=== PATIENT | female | born 1950 | race Caucasian/White ===

== ENCOUNTER → 2016-08-14 | Outpatient (REF) | payer MEDICARE, OTHER ==
[~2016-08-14] MED LIST: CALC1TAB30 PO; CENTTAB PO; GLUCTAB4 PO; LEVO100T54 PO; OMEGCAP9 PO; OMEP20CA3 PO; PARO40TA87 PO; [UNRECOGNIZED DRUG - OTHER] PO
[2016-08-14 11:37] LABS: MEAN CORPUSCULAR HEMOGLOBIN 29.5 pg (27.0-33.0); MEAN CORPUSCULAR HGB CONC 33.5 g/dl (32.0-36.5)
[2016-08-14 12:21] LABS: VITAMIN B12 LEVEL 492 PG/ML (247-911)
[2016-08-14 12:22] LABS: FOLATE > 24.0 NG/ML (>5.4)
[2016-08-14 13:07] LABS: ALBUMIN 4.1 GM/DL (3.2-5.2); ALBUMIN/GLOBULIN RATIO 1.28 (1.00-1.93); ALKALINE PHOSPHATASE 96 U/L (45-117); ALT/SGPT 20 U/L (12-78); ANION GAP 5 MEQ/L (8-16); AST/SGOT 17 U/L (15-37); BILIRUBIN,TOTAL 0.4 MG/DL (0.2-1.0); BLOOD UREA NITROGEN 16 MG/DL (7-18); CALCIUM LEVEL 8.9 MG/DL (8.8-10.2); CARBON DIOXIDE LEVEL 30 MEQ/L (21-32); CHLORIDE LEVEL 105 MEQ/L (98-107); CHOLESTEROL LEVEL 251 MG/DL (<200); CREATININE FOR GFR 0.74 MG/DL (0.55-1.02); FREE T4 0.91 NG/DL (0.76-1.46); GLOMERULAR FILTRATION RATE > 60.0 (>45); GLUCOSE, FASTING 83 MG/DL (80-110); POTASSIUM SERUM 4.6 MEQ/L (3.5-5.1); SODIUM LEVEL 140 MEQ/L (136-145); TOTAL PROTEIN 7.3 GM/DL (6.4-8.2); TRIGLYCERIDES LEVEL 152 MG/DL (<150)
== END ==
LOC: M SFHCCLAY 09:15
PROVIDERS: ATTEND Family Medicine
DX: Z00.00 Encounter for general adult medical examination without abnormal findings (principal); E03.9 Hypothyroidism, unspecified; E78.00 Pure hypercholesterolemia, unspecified; M05.79 Rheumatoid arthritis with rheumatoid factor of multiple sites without organ or systems involvement; R41.3 Other amnesia

== ENCOUNTER → 2016-08-14 | Outpatient (CLI) | payer MEDICARE, OTHER ==
--- NOTE | 2016-08-14 10:00 | REP ---
Right hip series: Two views. History: Rheumatoid arthritis. Findings: AP and frog-leg views of the right hip show smooth rounded femoral head and intact at joint space. Periarticular soft tissues are unremarkable. No erosive change is seen. Impression: Negative right hip views.
== END ==
LOC: M CLY 09:19
PROVIDERS: ATTEND Family Medicine
DX: M05.79 Rheumatoid arthritis with rheumatoid factor of multiple sites without organ or systems involvement (principal)

== ENCOUNTER → 2017-12-03 | Outpatient (REF) | payer MEDICARE, OTHER ==
[2017-12-03 12:50] LABS: ALBUMIN 3.8 GM/DL (3.2-5.2); ALBUMIN/GLOBULIN RATIO 1.06 (1.00-1.93); ALKALINE PHOSPHATASE 95 U/L (45-117); ALT/SGPT 20 U/L (12-78); ANION GAP 7 MEQ/L (8-16); AST/SGOT 15 U/L (7-37); BILIRUBIN,TOTAL 0.4 MG/DL (0.2-1.0); BLOOD UREA NITROGEN 18 MG/DL (7-18); CALCIUM LEVEL 9.1 MG/DL (8.8-10.2); CARBON DIOXIDE LEVEL 30 MEQ/L (21-32); CHLORIDE LEVEL 105 MEQ/L (98-107); CHOLESTEROL LEVEL 250 MG/DL (<200); CHOLESTEROL RISK RATIO 4.166 (<5); CREATININE FOR GFR 0.79 MG/DL (0.55-1.30); FREE T4 0.82 NG/DL (0.76-1.46); GLOMERULAR FILTRATION RATE > 60.0 (>45); GLUCOSE, FASTING 79 MG/DL (70-100); HDL CHOLESTEROL 60 MG/DL (>40); LDL CHOLESTEROL 162.2 MG/DL (<100); NON-HDL-C 190 MG/DL; POTASSIUM SERUM 4.4 MEQ/L (3.5-5.1); SODIUM LEVEL 142 MEQ/L (136-145); TOTAL PROTEIN 7.4 GM/DL (6.4-8.2); TRIGLYCERIDES LEVEL 139 MG/DL (<150)
== END ==
LOC: M SFHCCLAY 09:30
DX: E78.00 Pure hypercholesterolemia, unspecified (principal); E03.9 Hypothyroidism, unspecified
CPT/HCPCS: 84443

== ENCOUNTER → 2018-09-02 | Outpatient (REF) | payer MEDICARE, OTHER ==
[~2018-09-02] MED LIST changes: +PARO40TA3 PO; -PARO40TA87 PO
[2018-09-02 16:40] LABS: C REACTIVE PROTEIN QUANTITATIV < 0.30 MG/DL (0.00-0.30); RHEUMATOID FACTOR QUANT < 10.0 IU/ML (<15.0)
== END ==
LOC: M SFHCCLAY 11:04
PROVIDERS: ATTEND Family Medicine
DX: M06.9 Rheumatoid arthritis, unspecified (principal)
CPT/HCPCS: 85652; 86140; 86200; 86431; G0463

== ENCOUNTER → 2018-11-21 | Outpatient (CLI) | payer MEDICARE, OTHER ==
[~2018-11-21] MED LIST changes: -OMEP20CA3 PO; +OMEP20CA4 PO
--- NOTE | 2018-11-22 11:58 | REP ---
PA and lateral chest: Comparison is 08/29/2015. The lung [place] are clear. The cardiac size is normal. The mckenna, mediastinum, and skeletal structures are unremarkable. Impression: Negative PA and lateral chest. Electronically Signed by Dixon Abel MD 11/21/2018 10:13 A
== END ==
LOC: M CLY 09:36
PROVIDERS: ATTEND Nurse Practitioner Family
DX: R05 Cough (principal)
CPT/HCPCS: 71046; G0463

== ENCOUNTER → 2019-10-06 | Outpatient (REF) | payer MEDICARE, BC, OTHER ==
[~2019-10-06] MED LIST changes: +OMEP1CAP73 PO; -OMEP20CA4 PO
== END ==
LOC: M LAB REF 17:52
PROVIDERS: ATTEND Physician Assistant
DX: C44.519 Basal cell carcinoma of skin of other part of trunk (principal)
CPT/HCPCS: 11102; 88305; G0463

== ENCOUNTER → 2019-12-01 | Outpatient (REF) | payer MEDICARE, OTHER | LOC: M LAB REF 11:35 | PROVIDERS: ATTEND Dermatology | DX: L57.0 Actinic keratosis (principal) ==

== ENCOUNTER → 2020-07-11 | Outpatient (REF) | payer MEDICARE, OTHER ==
[2020-07-11 13:13] LABS: HEMATOCRIT 39.3 % (36.0-47.0); HEMOGLOBIN 12.5 g/dl (12.0-15.5); MEAN CORPUSCULAR HEMOGLOBIN 28.9 pg (27.0-33.0); MEAN CORPUSCULAR HGB CONC 31.8 g/dl (32.0-36.5); MEAN CORPUSCULAR VOLUME 90.8 fl (80.0-96.0); PLATELET COUNT, AUTOMATED 347 10^3/uL (150-450); RED BLOOD COUNT 4.33 10^6/uL (4.00-5.40); WHITE BLOOD COUNT 5.8 10^3/uL (4.0-10.0)
[2020-07-11 14:49] LABS: ALBUMIN 4.1 GM/DL (3.2-5.2); ALT/SGPT 19 U/L (12-78); BILIRUBIN,TOTAL 0.5 MG/DL (0.2-1.0); BLOOD UREA NITROGEN 16 MG/DL (7-18); CALCIUM LEVEL 10.1 MG/DL (8.8-10.2); CARBON DIOXIDE LEVEL 30 MEQ/L (21-32); CHLORIDE LEVEL 106 MEQ/L (98-107); CHOLESTEROL LEVEL 243 MG/DL (<200); CHOLESTEROL RISK RATIO 2.892 (<5); CREATININE FOR GFR 0.85 MG/DL (0.55-1.30); FREE T4 1.03 NG/DL (0.76-1.46); GLOMERULAR FILTRATION RATE > 60.0 (>45); GLUCOSE, FASTING 82 MG/DL (70-100); HDL CHOLESTEROL 84 MG/DL (>40); LDL CHOLESTEROL 141 MG/DL (<100); NON-HDL-C 159 MG/DL; POTASSIUM SERUM 4.5 MEQ/L (3.5-5.1); SODIUM LEVEL 141 MEQ/L (136-145); TOTAL PROTEIN 7.3 GM/DL (6.4-8.2); TRIGLYCERIDES LEVEL 91 MG/DL (<150)
== END ==
LOC: M SFHCCLAY 09:06
PROVIDERS: ATTEND Family Medicine
DX: Z00.00 Encounter for general adult medical examination without abnormal findings (principal); E03.9 Hypothyroidism, unspecified; E78.00 Pure hypercholesterolemia, unspecified

== ENCOUNTER → 2020-09-10 | Outpatient (REF) | payer MEDICARE, OTHER ==
[2020-09-10 16:30] LABS: CALCIUM LEVEL 9.6 MG/DL (8.8-10.2); CHOLESTEROL RISK RATIO 2.693 (<5); GLOMERULAR FILTRATION RATE 58.5 (>45); POTASSIUM SERUM 4.2 MEQ/L (3.5-5.1)
== END ==
LOC: M SFHCCLAY 09:20
PROVIDERS: ATTEND Family Medicine
DX: E78.00 Pure hypercholesterolemia, unspecified (principal); E05.90 Thyrotoxicosis, unspecified without thyrotoxic crisis or storm; I10 Essential (primary) hypertension

== ENCOUNTER → 2020-12-04 | Outpatient (CLI) | payer MEDICARE, BC, OTHER ==
--- NOTE | 2020-12-04 10:06 | REP ---
INDICATION: M54.41 RIGHT SIDE LOW BACK PAIN RIGHT SCIATIC. COMPARISON: 10/08/2011. TECHNIQUE: Five views lumbosacral spine. FINDINGS: There is no compression fracture. There is mild anterolisthesis of L5 on S1 due to posterior facet arthropathy. This is a new finding when compared to the prior study. There is moderate diffuse spurring. There is moderate disc space narrowing and subchondral sclerosis at L1-2, L4-5 and L5-S1, with vacuum phenomenon at L4-5 and L5-S1. There is mild narrowing at L2-3. There is sclerosis and spurring at the posterior facet joints, especially L4-5 and L5-S1. The posterior elements are intact. There is mild curvature of the lower thoracic and lumbar spine convex to the right. IMPRESSION: No compression fracture. Degenerative changes as discussed in detail above, with new mild anterolisthesis of L5 on S1 compared to the prior study in 2011. <Electronically signed by Dixon Forrest > 12/04/20 [id number]
== END ==
LOC: M CLY 09:26
PROVIDERS: ATTEND Physician Assistant
DX: M43.17 Spondylolisthesis, lumbosacral region (principal); M54.41 Lumbago with sciatica, right side
CPT/HCPCS: 72110; G0463

== ENCOUNTER → 2020-12-09 | Outpatient (REF) | payer MEDICARE, OTHER | LOC: M LAB REF 19:08 | PROVIDERS: ATTEND Physician Assistant | DX: L57.0 Actinic keratosis (principal) ==

== ENCOUNTER → 2020-12-16 | Outpatient (CLI) | payer MEDICARE, BC, OTHER | LOC: M PLAIMG 16:01 | PROVIDERS: ATTEND Physician Assistant | DX: M51.26 Other intervertebral disc displacement, lumbar region (principal); M51.25 Other intervertebral disc displacement, thoracolumbar region; M48.061 Spinal stenosis, lumbar region without neurogenic claudication; M47.816 Spondylosis without myelopathy or radiculopathy, lumbar region ==

== ENCOUNTER → 2021-08-05 | Outpatient (REF) | payer MEDICARE, OTHER | LOC: M SFHCCLAY 09:33 | PROVIDERS: ATTEND Family Medicine | DX: M06.9 Rheumatoid arthritis, unspecified (principal); R41.3 Other amnesia; E03.9 Hypothyroidism, unspecified; E78.00 Pure hypercholesterolemia, unspecified ==

== ENCOUNTER → 2021-08-06 | Outpatient (REF) | payer MEDICARE, OTHER ==
[2021-08-06 11:39] LABS: BASO # 0.1 10^3/uL (0.0-0.2); BASO % 1.6 % (0.0-1.0); EOS # 0.2 10^3/uL (0.0-0.5); EOS % 2.9 % (0.0-3.0); HEMATOCRIT 38.4 % (36.0-47.0); HEMOGLOBIN 12.9 g/dl (12.0-15.5); LYMPH % 34.1 % (24.0-44.0); MEAN CORPUSCULAR HEMOGLOBIN 29.2 pg (27.0-33.0); MEAN CORPUSCULAR HGB CONC 33.6 g/dl (32.0-36.5); MEAN CORPUSCULAR VOLUME 86.9 fl (80.0-96.0); MONO # 0.6 10^3/uL (0.0-0.8); MONO % 9.5 % (2.0-8.0); NEUTROPHILS % 51.7 % (36.0-66.0); PLATELET COUNT, AUTOMATED 372 10^3/uL (150-450); RED BLOOD COUNT 4.42 10^6/uL (4.00-5.40); WHITE BLOOD COUNT 5.8 10^3/uL (4.0-10.0)
[2021-08-06 12:32] LABS: BILIRUBIN,TOTAL 0.5 MG/DL (0.2-1.0); CALCIUM LEVEL 10.1 MG/DL (8.8-10.2); CHOLESTEROL RISK RATIO 2.698 (<5); FREE T4 0.93 NG/DL (0.76-1.46); GLOMERULAR FILTRATION RATE 58.4 (>39); POTASSIUM SERUM 4.3 MEQ/L (3.5-5.1); THYROID STIMULATING HORMONE 2.44 uIU/ML (0.358-3.740); TOTAL PROTEIN 7.4 GM/DL (6.4-8.2)
[2021-08-06 16:22] LABS: APPEARANCE, URINE HAZY (CLEAR); BACTERIA, URINE AUTO NEGATIVE (NEGATIVE); BILIRUBIN, URINE AUTO NEGATIVE (NEGATIVE); BLOOD, URINE BLOOD NEGATIVE (NEGATIVE); COLOR, URINE YELLOW (YELLOW); GLUCOSE, URINE (UA) AUTO NEGATIVE (NEGATIVE); KETONE, URINE AUTO NEGATIVE (NEGATIVE); LEUKOCYTE ESTERASE, URINE AUTO 1+ (NEGATIVE); MUCUS, URINE SMALL (NEGATIVE); NITRITE, URINE AUTO NEGATIVE (NEGATIVE); PROTEIN, URINE AUTO 1+ mg/dL (NEGATIVE); RBC, URINE AUTO 1 /HPF (0-3); SPECIFIC GRAVITY URINE AUTO 1.024 (1.002-1.035); SQUAMOUS EPITHELIAL CELL UR AU 1 /HPF (0-6); UROBILINOGEN, URINE AUTO 0.2 mg/dL (0.0-2.0); WBC, URINE AUTO 8 /HPF (0-3)
== END ==
LOC: M SFHCCLAY 08:44
PROVIDERS: ATTEND Family Medicine
DX: M06.9 Rheumatoid arthritis, unspecified (principal); R41.3 Other amnesia; M51.37 Other intervertebral disc degeneration, lumbosacral region; E03.9 Hypothyroidism, unspecified; E78.00 Pure hypercholesterolemia, unspecified; Z12.31 Encounter for screening mammogram for malignant neoplasm of breast

== ENCOUNTER → 2022-01-09 | Outpatient (CLI) | payer MEDICARE, BC, OTHER | LOC: M PLARAD 12:18 | PROVIDERS: ATTEND Family Medicine | DX: R41.3 Other amnesia (principal); R90.82 White matter disease, unspecified ==

== ENCOUNTER → 2022-07-31 | Outpatient (REF) | payer MEDICARE, OTHER ==
[2022-07-31 17:56] LABS: HEMATOCRIT 38.1 % (36.0-47.0); HEMOGLOBIN 12.6 g/dl (12.0-15.5); MEAN CORPUSCULAR HEMOGLOBIN 28.9 pg (27.0-33.0); MEAN CORPUSCULAR HGB CONC 33.1 g/dl (32.0-36.5); MEAN CORPUSCULAR VOLUME 87.4 fl (80.0-96.0); PLATELET COUNT, AUTOMATED 426 10^3/uL (150-450); RED BLOOD COUNT 4.36 10^6/uL (4.00-5.40); WHITE BLOOD COUNT 7.6 10^3/uL (4.0-10.0)
[2022-07-31 18:23] LABS: ALBUMIN 4.2 G/DL (3.2-5.2); BILIRUBIN,TOTAL 0.4 MG/DL (0.3-1.2); CALCIUM LEVEL 9.8 MG/DL (8.3-10.6); CHOLESTEROL RISK RATIO 2.68 (<5); CREATININE FOR GFR 1.04 MG/DL (0.55-1.30); GLOMERULAR FILTRATION RATE 55.8 (>39); HDL CHOLESTEROL 75.5 MG/DL (>40); LDL CHOLESTEROL 107.9 MG/DL (<100); NON-HDL-C 127.5 MG/DL; POTASSIUM SERUM 4.5 MMOL/L (3.5-5.1); TOTAL PROTEIN 7.4 G/DL (5.7-8.2)
[2022-07-31 18:26] LABS: FREE T4 1.11 NG/DL (0.89-1.76); THYROID STIMULATING HORMONE 2.571 uIU/ML (0.55-4.78)
== END ==
LOC: M SFHCCLAY 09:47
PROVIDERS: ATTEND Family Medicine
DX: I10 Essential (primary) hypertension (principal); M06.9 Rheumatoid arthritis, unspecified; R41.3 Other amnesia; E03.9 Hypothyroidism, unspecified

== ENCOUNTER → 2022-10-02 | Outpatient (CLI) | payer MEDICARE, OTHER ==
[~2022-10-02] MED LIST changes: +CIDA500T2 PO; +HYDR-3490 PO; +HYDR200T46 PO; +LEVO75TA4 PO; +SIMV10TA21 PO; +THERTAB52 PO
== END ==
LOC: M SOG 09:11
PROVIDERS: ATTEND Orthopaedic Surgery
DX: M19.011 Primary osteoarthritis, right shoulder (principal)

== ENCOUNTER 2022-10-08 09:40 | Day surgery (SDC) | payer MEDICARE, BC, OTHER ==
[~2022-10-08] VITALS: Ht 160 cm; Wt 66.2 kg
[~2022-10-08 09:40] MED LIST changes: +LIDOCAINE 2% 100MG/5ML SDV (FOR ANES.) As Ordered ONE; +NS 1,000 ML IV ONE; +propofoL 200 MG/20 ML VIAL As Ordered ONE
[2022-10-08 13:23] VITALS: BP 127/77; TEMP 97.5; O2SAT 97
== END 2022-10-08 13:26 | disposition home or self-care (01) ==
LOC: M OPP 09:40
PROVIDERS: ATTEND Internal Medicine Gastroenterology
DX: Z12.11 Encounter for screening for malignant neoplasm of colon (principal); Z86.010 Personal history of colon polyps; D12.3 Benign neoplasm of transverse colon; D12.5 Benign neoplasm of sigmoid colon; Z79.890 Hormone replacement therapy; Z79.899 Other long term (current) drug therapy

== ENCOUNTER → 2023-01-18 | Outpatient (CLI) | payer MEDICARE, BC, OTHER ==
[~2023-01-18] MED LIST changes: -LIDOCAINE 2% 100MG/5ML SDV (FOR ANES.) As Ordered ONE; -NS 1,000 ML IV ONE; -propofoL 200 MG/20 ML VIAL As Ordered ONE
== END ==
LOC: M PLAIMG 10:52
PROVIDERS: ATTEND Orthopaedic Surgery
DX: M25.511 Pain in right shoulder (principal); M75.101 Unspecified rotator cuff tear or rupture of right shoulder, not specified as traumatic

== ENCOUNTER → 2023-11-17 | Outpatient (CLI) | payer MEDICARE, BC | LOC: M WHC 17:39 | PROVIDERS: ATTEND Family Medicine | DX: Z12.31 Encounter for screening mammogram for malignant neoplasm of breast (principal); Z53.9 Procedure and treatment not carried out, unspecified reason ==

== ENCOUNTER → 2024-02-09 | Outpatient (REF) | payer MEDICARE, BC ==
[2024-02-09 11:41] LABS: HEMATOCRIT 38.4 % (36.0-47.0); HEMOGLOBIN 12.5 g/dl (12.0-15.5); MEAN CORPUSCULAR HEMOGLOBIN 28.5 pg (27.0-33.0); MEAN CORPUSCULAR HGB CONC 32.6 g/dl (32.0-36.5); MEAN CORPUSCULAR VOLUME 87.5 fl (80.0-96.0); PLATELET COUNT, AUTOMATED 306 10^3/uL (150-450); RED BLOOD COUNT 4.39 10^6/uL (4.00-5.40); WHITE BLOOD COUNT 3.9 10^3/uL (4.0-10.0)
[2024-02-09 11:49] LABS: ERYTHROCYTE SEDIMENTATION RATE 17 mm/hr (0-30)
[2024-02-09 12:00] LABS: HEMOGLOBIN A1c 5.6 % (4.0-6.0)
[2024-02-09 12:14] LABS: C REACTIVE PROTEIN QUANTITATIV 4.9 MG/DL (<1.0)
[2024-02-09 12:16] LABS: ALBUMIN 3.7 G/DL (3.2-5.2); BILIRUBIN,TOTAL 0.4 MG/DL (0.3-1.2); CALCIUM LEVEL 9.7 MG/DL (8.3-10.6); CREATININE FOR GFR 1.07 MG/DL (0.55-1.30); FREE T4 1.28 NG/DL (0.89-1.76); GLOMERULAR FILTRATION RATE 53.7 (>39); POTASSIUM SERUM 4.3 MMOL/L (3.5-5.1); TOTAL PROTEIN 7.4 G/DL (5.7-8.2)
[2024-02-09 12:17] LABS: THYROID STIMULATING HORMONE 2.544 uIU/ML (0.55-4.78)
== END ==
LOC: M SFHCCLAY 08:48
PROVIDERS: ATTEND Family Medicine
DX: M06.9 Rheumatoid arthritis, unspecified (principal); E03.9 Hypothyroidism, unspecified; Z79.899 Other long term (current) drug therapy

== ENCOUNTER → 2024-10-06 | Outpatient (REF) | payer MEDICARE, OTHER ==
[2024-10-06 18:23] LABS: BASO # 0.1 10^3/uL (0.0-0.2); BASO % 1.7 % (0.0-1.0); EOS # 0.2 10^3/uL (0.0-0.5); EOS % 3.0 % (0.0-3.0); LYMPH # 1.6 10^3/uL (1.5-5.0); LYMPH % 24.8 % (24.0-44.0); MONO # 0.7 10^3/uL (0.0-0.8); MONO % 10.6 % (2.0-8.0); NEUTROPHILS # 3.9 10^3/uL (1.5-8.5); NEUTROPHILS % 59.6 % (36.0-66.0); PLATELET COUNT, AUTOMATED 424 10^3/uL (150-450)
[2024-10-06 18:28] LABS: RHEUMATOID FACTOR QUANT 6.7 IU/ML (<14)
[2024-10-06 18:29] LABS: ALT/SGPT 20 U/L (7.0-40); AST/SGOT 25 U/L (<34); CALCIUM LEVEL 9.8 MG/DL (8.3-10.6); CARBON DIOXIDE LEVEL 28 MMOL/L (20-31); CHLORIDE LEVEL 100 MMOL/L (98-107); CREATININE FOR GFR 1.14 MG/DL (0.55-1.30); GLOMERULAR FILTRATION RATE 50.8 (>39); POTASSIUM SERUM 4.0 MMOL/L (3.5-5.1); SODIUM LEVEL 140 MMOL/L (136-145)
[2024-10-06 18:30] LABS: VITAMIN B12 LEVEL 627 PG/ML (211-911)
[2024-10-06 18:37] LABS: ERYTHROCYTE SEDIMENTATION RATE 21 mm/hr (0-30)
== END ==
LOC: M LABDRAWC 17:29
PROVIDERS: ATTEND Psychiatry & Neurology Neurology
DX: R41.89 Other symptoms and signs involving cognitive functions and awareness (principal); Z79.899 Other long term (current) drug therapy

== ENCOUNTER → 2025-02-05 | Outpatient (REF) | payer MEDICARE, BC ==
[2025-02-05 13:32] LABS: CREATININE FOR GFR 1.06 MG/DL (0.55-1.30); GLOMERULAR FILTRATION RATE 55.5 (>39)
== END ==
LOC: M LAB REF 12:07 → M LABDRAWC 12:07
PROVIDERS: ATTEND Psychiatry & Neurology Neurology
DX: I10 Essential (primary) hypertension (principal)

== ENCOUNTER → 2025-02-19 | Outpatient (REF) | payer MEDICARE, BC ==
[2025-02-19 12:58] LABS: PLATELET COUNT, AUTOMATED 449 10^3/uL (150-450)
[2025-02-19 13:14] LABS: ESTIMATED AVERAGE GLUCOSE 114.0 MG/DL (60-110)
[2025-02-19 13:25] LABS: FREE T4 1.1 NG/DL (0.89-1.76)
[2025-02-19 13:31] LABS: ALT/SGPT 16.0 U/L (7.0-40); AST/SGOT 18.0 U/L (<34); CALCIUM LEVEL 10.0 MG/DL (8.3-10.6); CARBON DIOXIDE LEVEL 28.0 MMOL/L (20-31); CHLORIDE LEVEL 101.0 MMOL/L (98-107); CHOLESTEROL LEVEL 220.0 MG/DL (<200); CHOLESTEROL RISK RATIO 3.12 (<5); CREATININE FOR GFR 1.09 MG/DL (0.55-1.30); GLOMERULAR FILTRATION RATE 53.6 (>39); LDL CHOLESTEROL 133.1 MG/DL (<100); NON-HDL-C 149.7 MG/DL; POTASSIUM SERUM 4.0 MMOL/L (3.5-5.1); SODIUM LEVEL 139.0 MMOL/L (136-145); TRIGLYCERIDES LEVEL 83.0 MG/DL (<150)
== END ==
LOC: M SFHCCLAY 08:46
PROVIDERS: ATTEND Physician Assistant
DX: M06.9 Rheumatoid arthritis, unspecified (principal); H90.3 Sensorineural hearing loss, bilateral; E03.9 Hypothyroidism, unspecified; R41.3 Other amnesia; Z12.31 Encounter for screening mammogram for malignant neoplasm of breast; N95.8 Other specified menopausal and perimenopausal disorders; Z79.899 Other long term (current) drug therapy